=== PATIENT | male | born 1960 | race Caucasian/White ===

== ENCOUNTER 2021-02-13 23:47 | Inpatient (IN) | payer BC, SELFPAY ==
--- NOTE | 2021-02-13 23:49 | ED.RN ---
NO OLD EKGS IN MUSE
[2021-02-13 23:50] VITALS: BP 120/88; PULSE 79; RESP 16; TEMP 36.8; O2SAT 98; BMI 35.1
[2021-02-13 23:53] VITALS: BP 120/88; PULSE 76; RESP 16; TEMP 36.8; O2SAT 98
[2021-02-14] VITALS (14 sets, daily range): BP systolic 107–186; BP diastolic 87–106; PULSE 69–100; RESP 14–20; TEMP 36.8–37.7; O2SAT 95–99; BMI 31.8
--- NOTE | 2021-02-14 00:21 | EKG12_ITS ---
Test Reason : CP Blood Pressure : / mmHG Vent. Rate : 080 BPM Atrial Rate : 080 BPM P-R Int : 132 ms QRS Dur : 074 ms QT Int : 368 ms P-R-T Axes : 052 017 041 degrees QTc Int : 424 ms Normal sinus rhythm Normal ECG Confirmed by VIKRAM TYSON, BARRY ([id number]), offline editor ELIAS MATTA ([id number]) on 02/15/2021 10:03:25 AM Referred By: BB Confirmed By:BARRY SUE MD
--- NOTE | 2021-02-14 00:21 | CT_ITS ---
STUDY: CT BRAIN WITHOUT CONTRAST REASON FOR EXAM: Male, 60 years old. Dizziness RADIATION DOSAGE (If Supplied By Facility): CTDIvol = ( 44.99 ) mGy, DLP = ( 779.24 ) mGycm TECHNIQUE: Transaxial CT imaging of the brain was performed without administration of intravenous contrast material. Individualized dose optimization techniques were used for this CT. COMPARISON: No relevant priors. FINDINGS: Normal soft tissue structures. Normal calvarium. There is mild cerebral atrophy with widening of the extra-axial spaces and ventricular dilatation. Normal white matter tracts of the cerebral hemispheres. Normal basal ganglia and thalami. Normal brainstem. Normal cerebellum. There is no intracranial hemorrhage. There are no findings of an acute ischemic infarction. There is mucoid thickening of the maxillary sinuses and ethmoid sinuses frontal sinuses. CT/Brain/Head without Contrast IMPRESSION: Mild atrophy no evidence of acute hemorrhage infarct or edema. Pansinusitis. Electronically Signed: Tammy Arriaga MD at 0:53 EDT Tel , Service support ,
--- NOTE | 2021-02-14 00:21 | RAD_ITS ---
STUDY: X-RAY CHEST REASON FOR EXAM: Male, 60 years old. Sob TECHNIQUE: Single AP portable view of the chest. COMPARISON: None. FINDINGS: The lungs are clear and expanded. There is no demonstrated pleural abnormality. Normal size heart. Normal mediastinum and mamta. Normal visualized pulmonary arteries. Normal visualized aortic arch and descending thoracic aorta. There are diffuse degenerative changes of the visualized thoracic spine. Normal visualized ribs, clavicles, and shoulders. There is no demonstrated abnormality of the visualized soft tissue structures of the upper abdomen. RAD/Chest 1 View (Portable) IMPRESSION: Degenerative changes, as described above. No demonstrated acute cardiopulmonary process. Electronically Signed: Tammy Arriaga MD at 1:05 EDT Tel , Service support ,
--- NOTE | 2021-02-14 00:25 | EDS_ITS ---
HPI History of Present Illness Chief Complaint: Chest Pain Detail of Chief Complaint: CP, dizziness, sob, n/v Informant: patient and EMS Onset/Context/Timing Onset: Hours (2) Quality: lightheadedness. tightness. nonbilious nonbloody emesis. see below Location: see below. 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 It faded and then returned, followed by vomiting, and he felt dizzy after that. He states it felt like lightheadedness, not a sensation of movement or spinning or falling. He had several episodes of vomiting. He states standing definitely made his lightheadedness worse, he did feel close to passing out at one point but did not lose consciousness. Sitting down made him feel better, turning his body to change positions/directions or turning his head did not necessarily make his dizziness symptom worse. While he was dry heaving, and shortly thereafter, he was feeling very anxious and hyperventilating, feeling dyspnea, and started feeling tightness everywhere. He states he feels it now, but less so than it was earlier, but he admits he is uncomfortable because of feeling tight. He feels tightness in his back, his right lower chest, his left flank, and somewhat in his neck. He then goes on to say these areas of tightness he feels are musculoskeletal, he gets this frequently, it comes on every night and dissipates with taking his clonazepam, which he takes for his bipolar disorder in order to sleep every night. He states if he does not take it he will not be able to sleep for days. He states he felt that his vomiting and dry heaving exacerbated the tightness feeling in this scenario. He states the dyspnea, nausea, and dizziness are all resolved right now and he is feeling better but still anxious. Patient presents around midnight, he works second shift and is at the end of his shift. He states the shift was uneventful until this happened. He states he was drinking plenty of water, and he was not overheated as far as the area of the factor he was in. Prior similar symptoms: No Recent Illness/Hospitalization: No [facility] Medical History Bipolar disorder Home Medications clonazepam 1 mg PO QHS 01/01/14 [History Last Taken Unknown] divalproex 250 mg PO QHS 01/01/14 [History Last Taken Unknown] duloxetine 30 mg PO DAILY 01/01/14 [History Last Taken Unknown] lamotrigine 100 mg PO BID 01/01/14 [History Last Taken Unknown] Allergy/AdvReac Type Severity Reaction Status Date / Time No Known Allergies Allergy Verified 02/14/21 00:44 Social History (Updated 02/14/21 @ 00:[address] Ricardo uY MD) Smoking Status: Never smoker details: none today substance use type: does not use ROS ROS ED Constitutional Constitutional ED: Denies chills or fever(s) Eyes Eyes: Denies change in vision or diplopia ENT ENT ED: Denies rhinorrhea or sore throat Cardiovascular Cardiovascular: Denies chest pain or palpitations Respiratory/Chest Respiratory/Chest: Denies cough or dyspnea Gastrointestinal Gastrointestinal: Denies abdominal pain, diarrhea, nausea or vomiting Genitourinary Genitourinary ED: Denies dysuria or hematuria Musculoskeletal Musculoskeletal: Denies back pain or neck pain Integumentary Denies abscess or rash Neurologic Neurologic: Denies headache(s), paresthesias or weakness Psychiatric Psychiatric: Denies anxiety or suicidal thoughts EXAM Physical Exam Const Vital Signs: 02/13/21 23:50 02/13/21 23:53 02/13/21 23:59 Temperature 98.2 F 98.2 F Temperature Source Temporal Temporal Pulse Rate 79 76 Pulse Rate [Lying] Pulse Rate [Sitting] Pulse Rate [Standing] Respiratory Rate 16 16 Respiratory Effort Normal Non-Labored Blood Pressure 120/88 H 120/88 H Blood Pressure [Lying] Blood Pressure [Sitting] Blood Pressure [Standing] Blood Pressure Mean 98 98 Blood Pressure Mean [Lying] Blood Pressure Mean [Sitting] Blood Pressure Mean [Standing] Pulse Ox 98 98 Oxygen Delivery Method Room Air Room Air 02/14/21 00:31 02/14/21 00:48 02/14/21 01:16 Temperature Temperature Source Pulse Rate 100 91 Pulse Rate [Lying] 92 Pulse Rate [Sitting] 100 Pulse Rate [Standing] 100 Respiratory Rate 18 15 Respiratory Effort Blood Pressure 126/96 H 150/87 H Blood Pressure [Lying] 121/98 H Blood Pressure [Sitting] 117/88 H Blood Pressure [Standing] 107/95 H Blood Pressure Mean 106 108 Blood Pressure Mean [Lying] 105 Blood Pressure Mean [Sitting] 97 Blood Pressure Mean [Standing] 99 Pulse Ox 98 97 Oxygen Delivery Method Room Air Room Air 02/14/21 03:00 02/14/21 04:00 02/14/21 04:24 Temperature Temperature Source Pulse Rate 84 78 69 Pulse Rate [Lying] Pulse Rate [Sitting] Pulse Rate [Standing] Respiratory Rate 20 H 17 16 Respiratory Effort Blood Pressure 177/102 H Blood Pressure [Lying] Blood Pressure [Sitting] Blood Pressure [Standing] Blood Pressure Mean 127 Blood Pressure Mean [Lying] Blood Pressure Mean [Sitting] Blood Pressure Mean [Standing] Pulse Ox 99 95 Oxygen Delivery Method Room Air Room Air Positive well nourished and well developed General Appearance ED: well developed and NAD HEENT Reports TM's clear and moist mucous membranes Negative for trauma or tenderness Tympanic Membrane ED: Yes TM's clear Eyes PERRL and EOMs intact bilaterally EOM: Negative for nystagmus Neck full ROM and supple Resp normal respiratory effort and clear to auscultation bilaterally Cardio regular rate, regular rhythm and no murmurs Rate: Negative for bradycardia or tachycardic GI non-tender and non-distended Auscultation: normoactive bowel sounds Palpation: soft Back/Spine no CVA tenderness General Back: other FROM Extremity normal to inspection General Extremety ED: Negative for edema, pulses abnormal or tenderness General Extremity: Negative for edema or pulses abnormal Neuro oriented x3, CN's II-XII intact bilaterally and no sensory deficits noted Sensorium / Orientation: awake and alert Motor Exam: strength 5/5 throughout Coordination: [id number] test normal and [id number] test normal Psych mental status grossly normal and thought process normal Skin no rashes or lesions noted and no wounds MDM MDM MDM Narrative Medical decision making narrative: Lipase is elevated, and as below CT shows pansinusitis. I suspect the lipase is more likely related to his acute symptoms. He does not have the typical abdominal discomfort and tenderness that someone with acute pancreatitis typically has. He last drank alcohol 1-2 mos ago. Never had any abdominal surgeries. On reexamination, his abdomen is nontender and he is not having any significant pain. CT of the abdomen and pelvis with IV contrast was obtained next. Results are shown below. Discussed with Dr. Crawford with surgery who reviewed the imaging. With his elevated lipase, concern for possible annular pancreas was risen, however gastroenteritis is also in the differential diagnosis given the unusual pattern of bowel dilatation. In further discussion with the patient, he states it coincidentally his girlfriend's family had gastroenteritis this past week, she was around them, and then she got the symptoms. The patient always has loose stools because he drinks a lot of grape juice he states and so he cannot tell if he has had any abnormal diarrhea, he had 1 loose stool at work. Surgery recommends placing an NG tube given the severe distention of the stomach with fluid indicating that certainly something there is going on, and admitting him to perform further work-up. There is no data available at this time that would support an emergent transfer to a tertiary care center. Discussed w/ Hospitalist. NGT placed by nursing, stomach contents was aspirated, and in combination w/ the amount that the patient vomited in the process, about 1000mL of stomach contents was expelled. Given this, no XR is needed to verify placement. Also, with regards to the patient's elevated creatinine, he has no prior labs here, he is a [facility] primary care patient, he was not able to access his chart electronically in order to look for prior levels but he has never been told he had an abnormality. Lab Data Attestation: I reviewed the patient's lab results. Labs: Laboratory Results - last 24 hr 02/14/21 02/14/21 02/14/21 00:00 00:00 00:00 WBC 11.8 H RBC 4.49 L Hgb 14.4 Hct 42.3 MCV 94.2 H MCH 32.1 H MCHC 34.0 RDW Std Deviation 41.0 RDW Coeff of Kelley 11.9 Plt Count 359 MPV 9.4 Immature Gran % (Auto) 0.500 Neut % (Auto) 90.7 H Lymph % (Auto) 3.6 L [place] % (Auto) 4.0 Eos % (Auto) 0.9 Baso % (Auto) 0.3 Absolute Neuts (auto) 10.7 H Absolute Lymphs (auto) 0.43 L Nucleated RBC % 0 Differential Comment SCANNED Sodium 139 Potassium 5.1 Chloride 106 Carbon Dioxide 24.0 Anion Gap 9 BUN 25 H Creatinine 1.81 H Estim Creat Clear Calc 41.08 Est GFR (MDRD) Af Amer 50 L Est GFR (MDRD) Non-Af 41 L BUN/Creatinine Ratio 13.8 Glucose 150 H Calcium 9.7 Total Bilirubin 0.70 Direct Bilirubin 0.20 AST 28 ALT 46 Alkaline Phosphatase 101 Troponin I < 0.015 Total Protein 7.9 Albumin 4.3 Globulin 3.6 Lipase 1568 H Urine Color Urine Clarity Urine pH Ur Specific [place] Urine Protein Urine Glucose (UA) Urine Ketones Urine Occult Blood Urine Nitrite Urine Bilirubin Urine Urobilinogen Ur Leukocyte Esterase Urine RBC Urine WBC Ur Squamous Epith Cells Urine Bacteria Urine Mucus 02/14/21 01:00 WBC RBC Hgb Hct MCV MCH MCHC RDW Std Deviation RDW Coeff of Kelley Plt Count MPV Immature Gran % (Auto) Neut % (Auto) Lymph % (Auto) [place] % (Auto) Eos % (Auto) Baso % (Auto) Absolute Neuts (auto) Absolute Lymphs (auto) Nucleated RBC % Differential Comment Sodium Potassium Chloride Carbon Dioxide Anion Gap BUN Creatinine Estim Creat Clear Calc Est GFR (MDRD) Af Amer Est GFR (MDRD) Non-Af BUN/Creatinine Ratio Glucose Calcium Total Bilirubin Direct Bilirubin AST ALT Alkaline Phosphatase Troponin I Total Protein Albumin Globulin Lipase Urine Color Yellow Urine Clarity Clear Urine pH 6.0 Ur Specific [place] 1.020 Urine Protein 30 H Urine Glucose (UA) Normal Urine Ketones 5 H Urine Occult Blood Negative Urine Nitrite Negative Urine Bilirubin 1 H Urine Urobilinogen Normal Ur Leukocyte Esterase 25 H Urine RBC 0 SEEN Urine WBC 0-5 SEEN Ur Squamous Epith Cells 0 SEEN Urine Bacteria 0 SEEN Urine Mucus 0 SEEN Radiography Diagnostic Testing: Radiology Impression Brain CT 02/14/21 00:21 IMPRESSION: Mild atrophy no evidence of acute hemorrhage infarct or edema. Pansinusitis. Electronically Signed: Tammy Arriaga MD at 0:53 EDT Tel , Service support , Chest X-Ray 02/14/21 00:21 IMPRESSION: Degenerative changes, as described above. No demonstrated acute cardiopulmonary process. Electronically Signed: Tammy Arriaga MD at 1:05 EDT Tel , Service support , Abdomen/Pelvis CT 02/14/21 02:26 IMPRESSION: Distended stomach with a decompressed duodenum distended jejunum possible etiology enteritis or focal narrowing of the lumen, and/or potential for possible gastric outlet obstruction with enteritis versus moderate grade partial small bowel obstruction. Recommend aspiration precautions the stomach is very distended with an air-fluid level. Hepatic steatosis. No appendicitis. No hydronephrosis. Electronically Signed: Tammy Arriaga MD at 3:38 EDT Tel , Service support , EKG Initial EKG: Attestation: I personally reviewed and interpreted this EKG as follows: Interpretation: Sinus Rhythm and No Acute Injury Pattern Comments: normal EKG Prior EKG tracings: available for review (EMS, JPTA today) Prior: Unchanged (also normal) Discharge Plan Dx/Rx/DC Orders Clinical Impression: Partial bowel obstruction, Elevated lipase, KEITH (acute kidney injury) Disposition Disposition: Acute Care Hospital [facility]
[2021-02-14 00:32] LABS: Absolute Lymphocyte Count 0.43 X10^3/uL (0.83-4.51); Absolute Neutrophil Count 10.7 X10^3/uL (2.0-7.7); Basophil# 0.04 X10^3/uL; Basophil% 0.3 % (0-1); Eosinophil# 0.11 X10^3/uL; Eosinophils% 0.9 % (0-5); Hematocrit 42.3 % (40-54); Hemoglobin 14.4 g/dL (13.0-16.5); Lymphocyte # 0.43 X10^3/ul (0.83-4.51); Lymphocyte % 3.6 % (19-41); Mean Corpuscular Hgb 32.1 pg (27.0-32.0); Mean Corpuscular Volume 94.2 fL (80-94); Mean Platelet Vol. 9.4 fl (6.2-12.0); Monocyte# 0.47 X10^3/uL; NRBC Flagged by Analyzer 0 % (0-5); Neutrophil % 90.7 % (47-70); POSITIVE DIFFERENTIAL YES; Platelet Count 359 K/mm3 (150-450); RBC Distribution Width CV 11.9 % (11.6-14.6); Red Blood Count 4.49 M/mm3 (4.6-6.2); White Blood Count 11.8 K/mm3 (4.4-11.0)
[2021-02-14 00:47] LABS: Anion Gap 9 (5-15); BUN 25 mg/dL (7-18); BUN/Creat Ratio 13.8 RATIO (10-20); Calcium,Total 9.7 mg/dL (8.5-10.1); Chloride 106 mmol/L (98-107); Creatinine, Serum 1.81 mg/dL (0.70-1.30); EST Glomerular Filtration Rate 41 mL/min (>60); Est Glom Filt Rate - Afr Amer 50 mL/min (>60); Estimated Creatinine Clearance 41.08 ml/min; Glucose 150 mg/dL (74-106); Lipase 1568 U/L (73-393); Potassium 5.1 mmol/L (3.5-5.1); Sodium Level 139 mmol/L (136-145)
[2021-02-14 00:49] LABS: Differential Indicated SCAN CRITERIA MET
[2021-02-14] MEDS: clonazePAM 1 MG Tablet PO ×2 (00:52→21:39)
[2021-02-14 01:04] LABS: Bacteria 0 SEEN /hpf (None Seen); Color, Urine Yellow (Yellow); Glucose, Dipstick Normal (Normal); Ketone-Dipstick 5 mg/dl (Negative); Leukocyte Esterase-Dipstick 25 /ul (Negative); Mucous, Urine 0 SEEN /hpf (<or=2+); Nitrite-Dipstick Negative (Negative); Occult Blood-Urine Negative /ul (Negative); Protein-Dipstick 30 mg/dl (Negative); Red Blood Cells-Urine 0 SEEN /hpf (0-5); Squamous Epithelial Cells - UA 0 SEEN /hpf (0-5); Urine Clarity Clear (Clear); Urine Urobilinogen Normal (Normal)
[2021-02-14 01:08] LABS: Urine Bilirubin Dipstick 1 mg/dL (Negative)
[2021-02-14 01:10] LABS: White Blood Cells 0-5 SEEN /hpf (0-5)
[2021-02-14 01:12] LABS: Differential Comment SCANNED
--- NOTE | 2021-02-14 02:26 | CT_ITS ---
STUDY: CT ABDOMEN AND PELVIS WITH CONTRAST REASON FOR EXAM: Male, 60 years old. Vomiting, elevated lipase RADIATION DOSAGE (If Supplied By Facility): CTDIvol = ( 25.70 ) mGy, DLP = ( 1150.90 ) mGycm TECHNIQUE: Transaxial images were obtained from the dome of the diaphragm to the symphysis pubis without oral contrast. IV 100mL [id number]-[id number] was administered. Sagittal and coronal images were reconstructed. Individualized dose optimization techniques were used for this CT. COMPARISON: None. FINDINGS: The visualized lung bases are unremarkable. The visualized portions of the heart are within normal limits. There is decreased attenuation of the liver consistent with steatosis. Normal gallbladder and extrahepatic biliary system. Normal spleen. Normal pancreas. Normal bilateral adrenal glands. Normal right kidney. Normal left kidney. The stomach is very distended with an air-fluid level. Appears to taper at the level of the first part of the duodenum is minimally distended. There are distended loops of small bowel in the left upper quadrant up to 3 cm. There is focal decompress or possible narrowed appearance of the mild bowel lumen distal to this multi - loop distention on image #[id number]. The distal small bowel is decompressed. There is a equal or lesser caliber of the colon when compared to the distended left upper quadrant small bowel. The appendix is visualized and appears normal. Normal abdominal aorta. Normal inferior vena cava. Normal retroperitoneum. Normal urinary bladder. There are prostatic calcifications. Normal abdominal wall. There is multilevel spondylosis. There is multilevel disc space narrowing. There is a broad disc bulge L3-L4. At L4-L5 there is a broad disc osteophyte with moderate to severe neural foraminal narrowing moderate to severe central stenosis. At L5-S1 there is slight retrolisthesis. There is vacuum phenomenon. There is a broad disc bulge is no significant neural foramina narrowing or central stenosis. CT/Abdomen/Pelvis W IV Cont ONLY IMPRESSION: Distended stomach with a decompressed duodenum distended jejunum possible etiology enteritis or focal narrowing of the lumen, and/or potential for possible gastric outlet obstruction with enteritis versus moderate grade partial small bowel obstruction. Recommend aspiration precautions the stomach is very distended with an air-fluid level. Hepatic steatosis. No appendicitis. No hydronephrosis. Electronically Signed: Tammy Arriaga MD at 3:38 EDT Tel , Service support ,
[2021-02-14] MEDS: Lidocaine 4% 5 ML Ampul 2 ML INHALATION (04:24)
[2021-02-14 04:27] LABS: AST(SGOT) 28 U/L (15-37); Alanine Aminotransfer ALT/SGPT 46 U/L (16-61); Albumin, Serum 4.3 g/dL (3.2-5.0); Alkaline Phosphatase 101 U/L (45-117); Globulin 3.6 g/dL (2.2-4.2); Protein, Total 7.9 g/dL (6.4-8.2)
[2021-02-14] MEDS: Oxymetazoline 0.05% 1 SPRAY SPRAY.BTL 2 SPRAY NASAL (04:40)
--- NOTE | 2021-02-14 04:44 | RAD_ITS ---
STUDY: X-RAY - ABDOMEN/PELVIS REASON FOR EXAM: Male, 60 years old. Ng placement -- KUB with both diaphragms for NG/OG Verification TECHNIQUE: Single AP view of the abdomen / pelvis. COMPARISON: February 13, 2021 chest x-ray FINDINGS: There is minimal lower lobe atelectasis. There is an NG tube tip is in the stomach. There is a nonspecific partially visualized with distended appearing bowel loops in the left and midline abdomen. The liver spleen and kidneys are obscured. IMPRESSION : NG tube tip in satisfactory position. Electronically Signed: Tammy Arriaga MD at 6:23 EDT Tel , Service support , RAD/Abdomen Single View (Portable)
--- NOTE | 2021-02-14 04:59 | PCM.HP.STD ---
HPI - General General Date of Admission: 02/14/21 HPI Narrative MOUNA DENTON, is a 60 M with a significant history of bipolar disorder who presents to the emergency department with multiple episodes of nausea and vomiting that started few hours before presentation. Patient was at work doing some light duty nonexertional with. Reportedly he was not overheated and he was well hydrated. Associated if his symptoms is lightheadedness and chest pain radiating to his right shoulder blade and down below . He has had to episodes of loose bowel movements 1 at the workplace and 1 at the emergency department. He reported at his girlfriend; and girlfriend's family has nausea vomiting and diarrhea. [facility] Medical History (Updated 02/14/21 @ 05:[address] Isaias Tobias MD) Bipolar disorder Home Medications clonazepam 1 mg PO QHS 01/01/14 [History Last Taken Unknown] divalproex 250 mg PO QHS 01/01/14 [History Last Taken Unknown] duloxetine 30 mg PO DAILY 01/01/14 [History Last Taken Unknown] lamotrigine 100 mg PO BID 01/01/14 [History Last Taken Unknown] Allergy/AdvReac Type Severity Reaction Status Date / Time No Known Allergies Allergy Verified 02/14/21 00:44 Family History (Updated 02/14/21 @ 05:[address] Isaias Tobias MD) Other Aneurysm Cancer Heart disease Kidney disease Liver problem Surgical History (Updated 02/14/21 @ 05:[address] Isaias Tobias MD) H/O vasectomy S/P LASIK surgery of both eyes Social History (Updated 02/14/21 @ 05:[address] Isaias Tobias MD) Smoking Status: Never smoker alcohol intake: current alcohol intake frequency: holidays/special occasions only details: none today substance use type: does not use ROS Constitutional Constitutional: Denies chills or fever(s) Eyes Eyes: Denies blurry vision or change in vision ENT HEENT: Denies dysphagia, epistaxis or headache(s) Cardiovascular Cardiovascular: Reports chest pain and lightheadedness Respiratory/Chest Respiratory/Chest: Reports shortness of breath at rest; Denies cough or dyspnea Gastrointestinal Gastrointestinal: Reports loose stools, nausea and vomiting Genitourinary Genitourinary: Denies burning urination or difficulty urinating Musculoskeletal Musculoskeletal: Reports back pain Neurologic Neurologic: Denies abnormal speech or confusion Psychiatric Psychiatric: Reports anxiety and other Endocrine Endocrinology: Denies change in body appearance or cold intolerance Hematologic/Lymphatic Hematologic/Lymphatic: Denies easy bleeding or easy bruising Vital Signs Vital Signs Vital Signs: 02/13/21 23:50 02/13/21 23:53 02/13/21 23:59 Temperature 98.2 F 98.2 F Temperature Source Temporal Temporal Pulse Rate 79 76 Pulse Rate [Lying] Pulse Rate [Sitting] Pulse Rate [Standing] Respiratory Rate 16 16 Respiratory Effort Normal Non-Labored Blood Pressure 120/88 H 120/88 H Blood Pressure [Lying] Blood Pressure [Sitting] Blood Pressure [Standing] Blood Pressure Mean 98 98 Blood Pressure Mean [Lying] Blood Pressure Mean [Sitting] Blood Pressure Mean [Standing] Pulse Ox 98 98 Oxygen Delivery Method Room Air Room Air 02/14/21 00:31 02/14/21 00:48 02/14/21 01:16 Temperature Temperature Source Pulse Rate 100 91 Pulse Rate [Lying] 92 Pulse Rate [Sitting] 100 Pulse Rate [Standing] 100 Respiratory Rate 18 15 Respiratory Effort Blood Pressure 126/96 H 150/87 H Blood Pressure [Lying] 121/98 H Blood Pressure [Sitting] 117/88 H Blood Pressure [Standing] 107/95 H Blood Pressure Mean 106 108 Blood Pressure Mean [Lying] 105 Blood Pressure Mean [Sitting] 97 Blood Pressure Mean [Standing] 99 Pulse Ox 98 97 Oxygen Delivery Method Room Air Room Air 02/14/21 03:00 02/14/21 04:00 02/14/21 04:24 Temperature Temperature Source Pulse Rate 84 78 69 Pulse Rate [Lying] Pulse Rate [Sitting] Pulse Rate [Standing] Respiratory Rate 20 H 17 16 Respiratory Effort Blood Pressure 177/102 H Blood Pressure [Lying] Blood Pressure [Sitting] Blood Pressure [Standing] Blood Pressure Mean 127 Blood Pressure Mean [Lying] Blood Pressure Mean [Sitting] Blood Pressure Mean [Standing] Pulse Ox 99 95 Oxygen Delivery Method Room Air Room Air Physical Exam Const alert and oriented x3 General Appearance: cooperative HEENT normocephalic and head/scalp atraumatic Eyes PERRL and EOMs intact bilaterally Neck no lymphadenopathy and no JVD Resp normal respiratory effort and no retractions Cardio regular rate, regular rhythm, S1 normal heart sound and S2 normal heart sound Peripheral Pulses: pulses 2+ throughout GI normal to inspection, nondistended, normoactive bowel sounds Extremity normal to inspection and full ROM Peripheral Pulses: Yes pulses 2+ throughout Skin no rashes or lesions noted, no wounds and skin turgor normal Neuro oriented x3 and CN's II-XII intact bilaterally Sensorium / Orientation: awake and alert Psych Mood & Affect: anxious Lab / Micro Data Result Diagrams: 02/14/21 00:00 02/14/21 00:00 Labs: Laboratory Results - last 24 hr 02/14/21 02/14/21 02/14/21 00:00 00:00 00:00 WBC 11.8 H RBC 4.49 L Hgb 14.4 Hct 42.3 MCV 94.2 H MCH 32.1 H MCHC 34.0 RDW Std Deviation 41.0 RDW Coeff of Kelley 11.9 Plt Count 359 MPV 9.4 Immature Gran % (Auto) 0.500 Neut % (Auto) 90.7 H Lymph % (Auto) 3.6 L Butts % (Auto) 4.0 Eos % (Auto) 0.9 Baso % (Auto) 0.3 Absolute Neuts (auto) 10.7 H Absolute Lymphs (auto) 0.43 L Nucleated RBC % 0 Differential Comment SCANNED Sodium 139 Potassium 5.1 Chloride 106 Carbon Dioxide 24.0 Anion Gap 9 BUN 25 H Creatinine 1.81 H Estim Creat Clear Calc 41.08 Est GFR (MDRD) Af Amer 50 L Est GFR (MDRD) Non-Af 41 L BUN/Creatinine Ratio 13.8 Glucose 150 H Calcium 9.7 Total Bilirubin 0.70 Direct Bilirubin 0.20 AST 28 ALT 46 Alkaline Phosphatase 101 Troponin I < 0.015 Total Protein 7.9 Albumin 4.3 Globulin 3.6 Lipase 1568 H Urine Color Urine Clarity Urine pH Ur Specific [place] Urine Protein Urine Glucose (UA) Urine Ketones Urine Occult Blood Urine Nitrite Urine Bilirubin Urine Urobilinogen Ur Leukocyte Esterase Urine RBC Urine WBC Ur Squamous Epith Cells Urine Bacteria Urine Mucus 02/14/21 01:00 WBC RBC Hgb Hct MCV MCH MCHC RDW Std Deviation RDW Coeff of Kelley Plt Count MPV Immature Gran % (Auto) Neut % (Auto) Lymph % (Auto) Butts % (Auto) Eos % (Auto) Baso % (Auto) Absolute Neuts (auto) Absolute Lymphs (auto) Nucleated RBC % Differential Comment Sodium Potassium Chloride Carbon Dioxide Anion Gap BUN Creatinine Estim Creat Clear Calc Est GFR (MDRD) Af Amer Est GFR (MDRD) Non-Af BUN/Creatinine Ratio Glucose Calcium Total Bilirubin Direct Bilirubin AST ALT Alkaline Phosphatase Troponin I Total Protein Albumin Globulin Lipase Urine Color Yellow Urine Clarity Clear Urine pH 6.0 Ur Specific [place] 1.020 Urine Protein 30 H Urine Glucose (UA) Normal Urine Ketones 5 H Urine Occult Blood Negative Urine Nitrite Negative Urine Bilirubin 1 H Urine Urobilinogen Normal Ur Leukocyte Esterase 25 H Urine RBC 0 SEEN Urine WBC 0-5 SEEN Ur Squamous Epith Cells 0 SEEN Urine Bacteria 0 SEEN Urine Mucus 0 SEEN Radiology Impression Brain CT 02/14/21 00:21 IMPRESSION: Mild atrophy no evidence of acute hemorrhage infarct or edema. Pansinusitis. Electronically Signed: Tammy Arriaga MD at 0:53 EDT Tel , Service support , Chest X-Ray 02/14/21 00:21 IMPRESSION: Degenerative changes, as described above. No demonstrated acute cardiopulmonary process. Electronically Signed: Tammy Arriaga MD at 1:05 EDT Tel , Service support , Abdomen/Pelvis CT 02/14/21 02:26 IMPRESSION: Distended stomach with a decompressed duodenum distended jejunum possible etiology enteritis or focal narrowing of the lumen, and/or potential for possible gastric outlet obstruction with enteritis versus moderate grade partial small bowel obstruction. Recommend aspiration precautions the stomach is very distended with an air-fluid level. Hepatic steatosis. No appendicitis. No hydronephrosis. Electronically Signed: Tammy Arriaga MD at 3:38 EDT Tel , Service support , Assessment & Plan Assessment/Plan (1) Gastroenteritis: Status: Acute Code(s): K52.9 - Noninfective gastroenteritis and colitis, unspecified (2) Partial bowel obstruction: Status: Acute Code(s): K56.600 - Partial intestinal obstruction, unspecified as to cause Qualifiers: Intestinal obstruction type: unspecified Qualified Code(s): K56.600 - Partial intestinal obstruction, unspecified as to cause (3) Elevated lipase: Status: Acute Code(s): R74.8 - Abnormal levels of other serum enzymes (4) KEITH (acute kidney injury): Status: Acute Code(s): N17.9 - Acute kidney failure, unspecified (5) Bipolar disorder: Status: Chronic Code(s): F31.9 - Bipolar disorder, unspecified Qualifiers: Active/Remission status: remission status unspecified Qualified Code(s): F31.9 - Bipolar disorder, unspecified Plan: Emergency department doctor discussed the case with general surgeon who will follow. Inpatient general surgeon consult. NG tube placed in the emergency department. Enteropathogenic panel; O&P and C. difficile test Zofran IV as needed ordered. Lactated Ringer's infusion ordered Trend CBC and CMP. Community records were reviewed. No other labs found. Avoid nephrotoxic's. Currently n.p.o. so home p.o. psych medications held. In exchange of clonazepam will give Ativan IV x1 and nightly. Inpatient E&M: [id number] Init Hosp L3
--- NOTE | 2021-02-14 05:55 | US_ITS ---
STUDY: ABDOMINAL ULTRASOUND - RIGHT UPPER QUADRANT REASON FOR VISIT: Male, 60 years old pancreatitis TECHNIQUE: Ultrasound evaluation of the right upper quadrant was performed with real-time and static martin-scale imaging. TECHNICAL QUALITY: Adequate. COMPARISON: None. FINDINGS: Liver: The liver measures 15.5 cm. There is increased echogenicity consistent with fatty infiltration. The bile ducts are within normal limits. There is hepatic color flow. The direction of portal flow is hepatopetal. There is no demonstrated mass lesion. Gallbladder: Normal distended gallbladder. The gallbladder wall measures 2 mm. There is a negative sonographic Treviño''s sign. There is no pericholecystic fluid. There is biliary sludge dependent within the gallbladder. Common Bile Duct (C.B.D.): The common bile duct measures 3 mm. Pancreas: Normal size of the head, body and tail of the pancreas. There is normal echogenicity of the pancreas. There is no demonstrated pancreatic mass or cyst. Right Kidney: Normal size of the right kidney. The right kidney measures 9.9 cm. Normal renal cortex. The right cortex measures 1.4 cm. There is no demonstrated renal mass or cyst. There is no right hydronephrosis. US/Gallbladder IMPRESSION: 1. Gallbladder sludge. 2. Fatty infiltration liver. Electronically Signed: Ketan Bustos MD at 8:46 EDT Tel , Service support ,
[2021-02-14] MEDS: Lactated Ringers 1,000 ML 150 ML IV ×3 (06:11→21:13)
[2021-02-14] MEDS: 0.9% Saline Lock 10 ML Syringe IV ×2 (06:11→18:23)
[2021-02-14] MEDS: LORazepam 2 MG/ML Syringe 1 MG IV (06:11)
[2021-02-14 06:31] LABS: Absolute Lymphocyte Count 0.29 X10^3/uL (0.83-4.51); Absolute Neutrophil Count 9.9 X10^3/uL (2.0-7.7); Basophil# 0.03 X10^3/uL; Basophil% 0.3 % (0-1); Eosinophil# 0.01 X10^3/uL; Eosinophils% 0.1 % (0-5); Hematocrit 40.2 % (40-54); Hemoglobin 13.3 g/dL (13.0-16.5); Lymphocyte # 0.29 X10^3/ul (0.83-4.51); Lymphocyte % 2.7 % (19-41); Mean Corp Hgb Conc 33.1 g/dL (32-36); Mean Corpuscular Hgb 31.1 pg (27.0-32.0); Mean Corpuscular Volume 93.9 fL (80-94); Mean Platelet Vol. 8.9 fl (6.2-12.0); Monocyte# 0.32 X10^3/uL; NRBC Flagged by Analyzer 0 % (0-5); Neutrophil # 9.91 X10^3/uL (2.7-7.7); Neutrophil % 93.4 % (47-70); POSITIVE DIFFERENTIAL YES; Platelet Count 298 K/mm3 (150-450); RBC Distribution Width CV 12.2 % (11.6-14.6); RBC Distribution Width SD 42.1 fl (35.1-43.9); Red Blood Count 4.28 M/mm3 (4.6-6.2); White Blood Count 10.6 K/mm3 (4.4-11.0)
[2021-02-14 06:32] LABS: Differential Indicated SCAN CRITERIA MET
[2021-02-14 06:50] LABS: Differential Comment SCANNED
[2021-02-14 07:01] LABS: ALB/GLOB Ratio 1.3 RATIO (0.9-2.4); AST(SGOT) 20 U/L (15-37); Alanine Aminotransfer ALT/SGPT 40 U/L (16-61); Albumin, Serum 3.7 g/dL (3.2-5.0); Alkaline Phosphatase 90 U/L (45-117); Anion Gap 9 (5-15); BUN 24 mg/dL (7-18); BUN/Creat Ratio 16.3 RATIO (10-20); Calcium,Total 8.7 mg/dL (8.5-10.1); Chloride 105 mmol/L (98-107); Creatinine, Serum 1.47 mg/dL (0.70-1.30); EST Glomerular Filtration Rate 52 mL/min (>60); Est Glom Filt Rate - Afr Amer 63 mL/min (>60); Estimated Creatinine Clearance 50.59 ml/min; Globulin 2.9 g/dL (2.2-4.2); Glucose 135 mg/dL (74-106); Potassium 4.4 mmol/L (3.5-5.1); Protein, Total 6.6 g/dL (6.4-8.2); Sodium Level 139 mmol/L (136-145)
[2021-02-14 07:15] LABS: Valproic Acid (Depakene) Level < 3 ug/mL (50-100)
--- NOTE | 2021-02-14 07:27 | EX.PCM.CON.S ---
Assessment & Plan Assessment/Plan (1) Partial bowel obstruction: Status: Acute Code(s): K56.600 - Partial intestinal obstruction, unspecified as to cause Qualifiers: Intestinal obstruction type: unspecified Qualified Code(s): K56.600 - Partial intestinal obstruction, unspecified as to cause (2) Elevated lipase: Status: Acute Code(s): R74.8 - Abnormal levels of other serum enzymes (3) Gastroenteritis: Status: Acute Code(s): K52.9 - Noninfective gastroenteritis and colitis, unspecified Plan: The patient was admitted with nausea and vomiting and had an NG tube placed with over a liter of output. The patient also reports that he is having diarrhea and abdominal pain rating to the back. The patient has sick contacts that are having the same symptoms. I have ordered a Covid test to ensure that this is not COVID-19. The patient is also ordered to have an ultrasound of the right upper quadrant to see if he has any gallstones. If the patient does have small gallstones it is possible that he has gallstone pancreatitis with ileus. The patient did have a very distended stomach on CT scan but he did have some mild dilation of the jejunum. Less likely the diagnosis would be a differential of annular pancreas causing gastric outlet obstruction. Fan Crawford MD Pager: [facility] [address] [place] [address], [address] [place] [address] Office: HPI Consult Data Date of Consult: 02/14/21 HPI Narrative HPI Narrative: MOUNA DENTON, is a 60 M who presents with nausea and vomiting. Patient also reports that he had diarrhea last night and again in the emergency room and again this morning up in his room. He does say he has had sick contacts. He says his girlfriend and her entire family were sick and she saw her recently. They had similar symptoms with nausea and vomiting and diarrhea. Patient says that he is having some epigastric pain radiating to the back. [facility] Medical History Anxiety Bipolar disorder Depression Migraines Home Medications clonazepam 1 mg PO QHS 01/01/14 [History Last Taken 02/14/21] divalproex 250 mg PO QHS 01/01/14 [History Last Taken 02/12/21] duloxetine 30 mg PO DAILY 01/01/14 [History Last Taken 02/13/21] lamotrigine 100 mg PO BID 01/01/14 [History Last Taken 02/13/21] Allergy/AdvReac Type Severity Reaction Status Date / Time No Known Allergies Allergy Verified 02/14/21 00:44 Family History (Updated 02/14/21 @ 05:[address] Isaias oTbias MD) Other Aneurysm Cancer Heart disease Kidney disease Liver problem Surgical History H/O vasectomy S/P LASIK surgery of both eyes Social History (Updated 02/14/21 @ 05:[address] Isaias Tobias MD) Smoking Status: Never smoker alcohol intake: current alcohol intake frequency: holidays/special occasions only details: none today substance use type: does not use ROS Constitutional Constitutional: Denies chills or fever(s) Cardiovascular Cardiovascular: Denies chest pain Respiratory/Chest Respiratory/Chest: Denies cough Gastrointestinal Gastrointestinal: Reports abdominal pain, diarrhea, nausea and vomiting Musculoskeletal Musculoskeletal: Denies abnormal gait Integumentary Integumentary: Denies jaundice Neurologic Neurologic: Denies dizziness Psychiatric Psychiatric: Reports systems reviewed and no addt'l complaints, except as documented Endocrine Endocrinology: Reports systems reviewed and no addt'l complaints, except as documented Physical Exam Const alert and oriented x3 General Appearance: cooperative HEENT normocephalic Eyes PERRL Neck full ROM Lymph Lymphatic: no lymphadenopathy noted Resp normal respiratory effort Cardio Rate: regular rate Rhythm: regular rhythm GI soft to palpation and non-distended Palpation: tender epigastric Lab / Micro Data Result Diagrams: 02/14/21 06:16 02/14/21 06:16 Labs: Laboratory Results - last 24 hr 02/14/21 02/14/21 02/14/21 00:00 00:00 00:00 WBC 11.8 H RBC 4.49 L Hgb 14.4 Hct 42.3 MCV 94.2 H MCH 32.1 H MCHC 34.0 RDW Std Deviation 41.0 RDW Coeff of Kelley 11.9 Plt Count 359 MPV 9.4 Immature Gran % (Auto) 0.500 Neut % (Auto) 90.7 H Lymph % (Auto) 3.6 L Haakon % (Auto) 4.0 Eos % (Auto) 0.9 Baso % (Auto) 0.3 Absolute Neuts (auto) 10.7 H Absolute Lymphs (auto) 0.43 L Nucleated RBC % 0 Differential Comment SCANNED Sodium 139 Potassium 5.1 Chloride 106 Carbon Dioxide 24.0 Anion Gap 9 BUN 25 H Creatinine 1.81 H Estim Creat Clear Calc 41.08 Est GFR (MDRD) Af Amer 50 L Est GFR (MDRD) Non-Af 41 L BUN/Creatinine Ratio 13.8 Glucose 150 H Calcium 9.7 Total Bilirubin 0.70 Direct Bilirubin 0.20 AST 28 ALT 46 Alkaline Phosphatase 101 Troponin I < 0.015 Total Protein 7.9 Albumin 4.3 Globulin 3.6 Albumin/Globulin Ratio Lipase 1568 H Urine Color Urine Clarity Urine pH Ur Specific [place] Urine Protein Urine Glucose (UA) Urine Ketones Urine Occult Blood Urine Nitrite Urine Bilirubin Urine Urobilinogen Ur Leukocyte Esterase Urine RBC Urine WBC Ur Squamous Epith Cells Urine Bacteria Urine Mucus Valproic Acid 02/14/21 02/14/21 02/14/21 01:00 06:16 06:16 WBC 10.6 RBC 4.28 L Hgb 13.3 Hct 40.2 MCV 93.9 MCH 31.1 MCHC 33.1 RDW Std Deviation 42.1 RDW Coeff of Kelley 12.2 Plt Count 298 MPV 8.9 Immature Gran % (Auto) 0.500 Neut % (Auto) 93.4 H Lymph % (Auto) 2.7 L Haakon % (Auto) 3.0 Eos % (Auto) 0.1 Baso % (Auto) 0.3 Absolute Neuts (auto) 9.9 H Absolute Lymphs (auto) 0.29 L Nucleated RBC % 0 Differential Comment SCANNED Sodium 139 Potassium 4.4 Chloride 105 Carbon Dioxide 25.0 Anion Gap 9 BUN 24 H Creatinine 1.47 H Estim Creat Clear Calc 50.59 Est GFR (MDRD) Af Amer 63 Est GFR (MDRD) Non-Af 52 L BUN/Creatinine Ratio 16.3 Glucose 135 H Calcium 8.7 Total Bilirubin 0.50 Direct Bilirubin AST 20 ALT 40 Alkaline Phosphatase 90 Troponin I Total Protein 6.6 Albumin 3.7 Globulin 2.9 Albumin/Globulin Ratio 1.3 Lipase Urine Color Yellow Urine Clarity Clear Urine pH 6.0 Ur Specific [place] 1.020 Urine Protein 30 H Urine Glucose (UA) Normal Urine Ketones 5 H Urine Occult Blood Negative Urine Nitrite Negative Urine Bilirubin 1 H Urine Urobilinogen Normal Ur Leukocyte Esterase 25 H Urine RBC 0 SEEN Urine WBC 0-5 SEEN Ur Squamous Epith Cells 0 SEEN Urine Bacteria 0 SEEN Urine Mucus 0 SEEN Valproic Acid 02/14/21 06:16 WBC RBC Hgb Hct MCV MCH MCHC RDW Std Deviation RDW Coeff of [place] Plt Count MPV Immature Gran % (Auto) Neut % (Auto) Lymph % (Auto) Haakon % (Auto) Eos % (Auto) Baso % (Auto) Absolute Neuts (auto) Absolute Lymphs (auto) Nucleated RBC % Differential Comment Sodium Potassium Chloride Carbon Dioxide Anion Gap BUN Creatinine Estim Creat Clear Calc Est GFR (MDRD) Af Amer Est GFR (MDRD) Non-Af BUN/Creatinine Ratio Glucose Calcium Total Bilirubin Direct Bilirubin AST ALT Alkaline Phosphatase Troponin I Total Protein Albumin Globulin Albumin/Globulin Ratio Lipase Urine Color Urine Clarity Urine pH Ur Specific [place] Urine Protein Urine Glucose (UA) Urine Ketones Urine Occult Blood Urine Nitrite Urine Bilirubin Urine Urobilinogen Ur Leukocyte Esterase Urine RBC Urine WBC Ur Squamous Epith Cells Urine Bacteria Urine Mucus Valproic Acid < 3 L Micro: Microbiology 02/14/21 06:39 SARS-CoV-2 Antigen (Rapid) - Final Interface Orders Radiology Impression Brain CT 02/14/21 00:21 IMPRESSION: Mild atrophy no evidence of acute hemorrhage infarct or edema. Pansinusitis. Electronically Signed: Tammy Arriaga MD at 0:53 EDT Tel , Service support , Chest X-Ray 02/14/21 00:21 IMPRESSION: Degenerative changes, as described above. No demonstrated acute cardiopulmonary process. Electronically Signed: Tammy Arriaga MD at 1:05 EDT Tel , Service support , Abdomen/Pelvis CT 02/14/21 02:26 IMPRESSION: Distended stomach with a decompressed duodenum distended jejunum possible etiology enteritis or focal narrowing of the lumen, and/or potential for possible gastric outlet obstruction with enteritis versus moderate grade partial small bowel obstruction. Recommend aspiration precautions the stomach is very distended with an air-fluid level. Hepatic steatosis. No appendicitis. No hydronephrosis. Electronically Signed: Tammy Arriaga MD at 3:38 EDT Tel , Service support , KUB X-Ray 02/14/21 04:44
--- NOTE | 2021-02-14 10:35 | CASEMGMT ---
RN AYSE Face to Face with patient for initial transition planning/care coordination assessment. RN CM introduced self and role at [facility]. Patient lying in bed, alert and oriented. Patient willing to participate in assessment and is able to answer all questions appropriately. Care providers, pharmacy, and demographics verified. Patient wishes to discharge home, denies need for home health at this time. Patient states he has no further needs or concerns at this time. CM to follow for discharge planning needs that may arise. PCP: No PCP, patient provided list of PCP in area Specialists: jyoti Kendrickist Preferred Pharmacy: [facility] Insurance: [place] Prescription Benefit: yes Living Will/HPOA: none LNOK: son Living Arrangements: Patient lives with son in a duplex with bed and bath on 1st floor. 2 steps and railing to enter. Patient is independent at home. Transportation: self/son DME/HHC: Patient denies DME or previous HHC. Disposition Plan: Patient to discharge home with family support and follow-up plans in place. Abigail MAXWELL, RN, CM
[2021-02-14] MEDS: lamoTRIgine 100 MG Tablet PO (18:22)
[2021-02-14] MEDS: DULoxetine Hcl 30 MG Capsule PO (18:22)
[2021-02-14] MEDS: Divalproex (ER) 250 MG Tablet PO (21:39)
[2021-02-15] MEDS: Lactated Ringers 1,000 ML 150 ML IV (04:47)
[2021-02-15 04:48] VITALS: BP 154/102; PULSE 67; RESP 18; TEMP 37.1; O2SAT 95
[2021-02-15 06:48] LABS: Absolute Neutrophil Count 3.8 X10^3/uL (2.0-7.7); Basophil# 0.02 X10^3/uL; Basophil% 0.4 % (0-1); Eosinophil# 0.22 X10^3/uL; Eosinophils% 3.9 % (0-5); Hematocrit 36.7 % (40-54); Hemoglobin 12.2 g/dL (13.0-16.5); Lymphocyte % 19.5 % (19-41); Mean Corp Hgb Conc 33.2 g/dL (32-36); Mean Corpuscular Hgb 31.7 pg (27.0-32.0); Mean Corpuscular Volume 95.3 fL (80-94); Monocyte# 0.49 X10^3/uL; Monocyte% 8.7 % (0-10); NRBC Flagged by Analyzer 0 % (0-5); Neutrophil # 3.78 X10^3/uL (2.7-7.7); Neutrophil % 67.1 % (47-70); Platelet Count 267 K/mm3 (150-450); RBC Distribution Width SD 41.6 fl (35.1-43.9); Red Blood Count 3.85 M/mm3 (4.6-6.2); White Blood Count 5.6 K/mm3 (4.4-11.0)
[2021-02-15 07:15] LABS: AST(SGOT) 22 U/L (15-37); Alanine Aminotransfer ALT/SGPT 37 U/L (16-61); Albumin, Serum 3.1 g/dL (3.2-5.0); Alkaline Phosphatase 76 U/L (45-117); Anion Gap 4 (5-15); BUN 14 mg/dL (7-18); BUN/Creat Ratio 12.1 RATIO (10-20); Calcium,Total 8.4 mg/dL (8.5-10.1); Chloride 107 mmol/L (98-107); Creatinine, Serum 1.16 mg/dL (0.70-1.30); EST Glomerular Filtration Rate 68 mL/min (>60); Est Glom Filt Rate - Afr Amer 83 mL/min (>60); Estimated Creatinine Clearance 64.11 ml/min; Globulin 3.2 g/dL (2.2-4.2); Glucose 100 mg/dL (74-106); Lipase 175 U/L (73-393); Potassium 3.7 mmol/L (3.5-5.1); Protein, Total 6.3 g/dL (6.4-8.2); Sodium Level 138 mmol/L (136-145)
--- NOTE | 2021-02-15 07:40 | PCM.PN.SRG ---
Subjective Subjective: Patient reports he is having diarrhea every 2 hours. He says he is not having any nausea or vomiting with clear liquids. His abdominal pain is improved. Objective Data Objective Data Vital Signs: Vital Signs Temp Pulse Resp BP Pulse Ox 98.8 F 67 18 154/102 H 95 02/15/21 04:48 02/15/21 04:48 02/15/21 04:48 02/15/21 04:48 02/15/21 04:48 Oxygen Delivery Method Room Air Weight: 206 lb 12.697 oz Body Mass Index (BMI) 31.8 Intake & Output: Intake and Output for Last 24 Hours 02/13/21 02/14/21 02/15/21 23:59 23:59 23:59 Intake Total 2600 / 2600 1000 / 1000 Output Total 50 / 50 Balance 2550 / 2550 1000 / 1000 Lab / Micro Data Result Diagrams: 02/15/21 06:15 02/15/21 06:15 Labs: Laboratory Results - last 24 hr 02/15/21 02/15/21 06:15 06:15 WBC 5.6 RBC 3.85 L Hgb 12.2 L Hct 36.7 L MCV 95.3 H MCH 31.7 MCHC 33.2 RDW Std Deviation 41.6 RDW Coeff of Kelley 12.0 Plt Count 267 MPV 9.0 Immature Gran % (Auto) 0.400 Neut % (Auto) 67.1 Lymph % (Auto) 19.5 [place] % (Auto) 8.7 Eos % (Auto) 3.9 Baso % (Auto) 0.4 Absolute Neuts (auto) 3.8 Absolute Lymphs (auto) 1.10 Nucleated RBC % 0 Sodium 138 Potassium 3.7 Chloride 107 Carbon Dioxide 27.0 Anion Gap 4 L BUN 14 Creatinine 1.16 Estim Creat Clear Calc 64.11 Est GFR (MDRD) Af Amer 83 Est GFR (MDRD) Non-Af 68 BUN/Creatinine Ratio 12.1 Glucose 100 Calcium 8.4 L Total Bilirubin 0.50 AST 22 ALT 37 Alkaline Phosphatase 76 Total Protein 6.3 L Albumin 3.1 L Globulin 3.2 Albumin/Globulin Ratio 1.0 Lipase 175 Micro: Microbiology 02/14/21 10:35 Stool Enteric Bacteriology - Final Norovirus 02/14/21 10:35 Stool C. difficile DNA Amplification - Final 02/14/21 06:39 Interface Orders SARS-CoV-2 Antigen (Rapid) - Final Radiography Diagnostic Testing: Radiology Impression Gallbladder Ultrasound 02/14/21 05:55 IMPRESSION: 1. Gallbladder sludge. 2. Fatty infiltration liver. Electronically Signed: Ketan Bustos MD at 8:46 EDT Tel , Service support , Physical Exam Narrative Abdomen is soft and nontender. Mildly distended. Assessment & Plan Assessment/Plan (1) Enteritis due to Norovirus: Status: Acute Code(s): A08.11 - Acute gastroenteropathy due to [place] agent (2) Gastroenteritis: Status: Acute Code(s): K52.9 - Noninfective gastroenteritis and colitis, unspecified Plan: The patient has norovirus gastroenteritis. I have advanced his diet to clear liquids yesterday and removed his NG which he tolerated. I will advance her to regular diet today. His lipase has returned to normal. Follow-up as needed. Okay to DC from my standpoint. Fan Crawford MD Pager: [facility] [address] [place] [address], [address] [place] [address] Office:
[2021-02-15 08:18] VITALS: O2SAT 96
[2021-02-15 09:40] VITALS: BP 150/97; PULSE 66; RESP 16; TEMP 36.9; O2SAT 100
[2021-02-15] MEDS: DULoxetine Hcl 30 MG Capsule PO (09:52)
[2021-02-15] MEDS: lamoTRIgine 100 MG Tablet PO (09:52)
--- NOTE | 2021-02-15 10:43 | DS.PCM_ITS ---
Providers Date of Admission: 02/14/21 Primary Care Physician: Mandy Primary Care Phys Consultations 02/14/21 05:35 Consult: General Surgery Routine Consulting Provider: Fan Crawford Reason for Consult: Gastric outlet obstruction EMERGENT Consult: No MD Notified: Yes Date Notified:: 02/14/21 Time Notified: 06:30 Method of Notification: Verbal Reason For Visit: GASTRIC OUTLET OBSTRUCTION Diagnosis Discharge Diagnosis (1) Gastroenteritis due to norovirus: Status: Acute Code(s): A08.11 - Acute gastroenteropathy due to [place] agent (2) KEITH (acute kidney injury): Status: Resolved Code(s): N17.9 - Acute kidney failure, unspecified Medications at Discharge Home Medications clonazepam 1 mg PO QHS 01/01/14 divalproex 250 mg PO QHS 01/01/14 duloxetine 30 mg PO DAILY 01/01/14 lamotrigine 100 mg PO BID 01/01/14 Hospital Course Operations None Procedures None Summary of Care Provided Minutes Spent on Discharge: 35 Hospital Course: HPI Cata DENTON, is a 60 M with a significant history of bipolar disorder who presents to the emergency department with multiple episodes of nausea and vomiting that started few hours before presentation. Patient was at work doing some light duty nonexertional with. Reportedly he was not overheated and he was well hydrated. Associated if his symptoms is lightheadedness and chest pain radiating to his right shoulder blade and down below . He has had to episodes of loose bowel movements 1 at the workplace and 1 at the emergency department. He reported at his girlfriend; and girlfriend's family has nausea vomiting and diarrhea. Hospital Course: 1. Gastroenteritis secondary to norovirus/[id number]-epqp-old male presented from home secondary to gastroenteritis and KEITH. His niece got sick about a week ago and as noted his and then he was at work and had some severe nausea followed by multiple episodes of emesis. He did have an NG tube placed because initially there was a concern for gastric outlet obstruction and had 1000 cc drained almost immediately upon insertion of the NG tube. Overnight he started having multiple bowel movements and was feeling much better so he was advance from his clear liquid diet to a regular diet this morning. He is tolerating his breakfast very well and he is remaining very hydrated with his IV fluids. As long as he continues to tolerate his general diet, I discussed with him the plan for discharge today and he expressed understanding risk benefits of going home and wants to go home today if he can. 2. Bipolar disorder is a chronic medical condition with complicates his care. His home medications were continued were appropriate Physical Exam Const alert, oriented x3 and no apparent distress General Appearance: cooperative HEENT normocephalic and moist oral mucous membranes Eyes PERRL, EOMs intact bilaterally and conjunctivae normal Neck no lymphadenopathy, supple and no JVD Resp normal respiratory effort and clear to auscultation bilaterally Auscultation: Negative for crackles, rales, rhonchi or wheezes Cardio regular rate, regular rhythm, S1 normal heart sound, S2 normal heart sound and no murmurs GI soft to palpation, non-tender and non-distended; Negative for hepatosplenomegaly Extremity no clubbing, cyanosis or edema Skin no rashes or lesions noted Neuro no focal motor deficits and no sensory deficits noted Psych affect normal ABG / Lab / Microbiology Data Result Diagrams: 02/15/21 06:15 02/15/21 06:15 Laboratory: Laboratory Results - last 24 hr 02/15/21 02/15/21 06:15 06:15 WBC 5.6 RBC 3.85 L Hgb 12.2 L Hct 36.7 L MCV 95.3 H MCH 31.7 MCHC 33.2 RDW Std Deviation 41.6 RDW Coeff of Kelley 12.0 Plt Count 267 MPV 9.0 Immature Gran % (Auto) 0.400 Neut % (Auto) 67.1 Lymph % (Auto) 19.5 [place] % (Auto) 8.7 Eos % (Auto) 3.9 Baso % (Auto) 0.4 Absolute Neuts (auto) 3.8 Absolute Lymphs (auto) 1.10 Nucleated RBC % 0 Sodium 138 Potassium 3.7 Chloride 107 Carbon Dioxide 27.0 Anion Gap 4 L BUN 14 Creatinine 1.16 Estim Creat Clear Calc 64.11 Est GFR (MDRD) Af Amer 83 Est GFR (MDRD) Non-Af 68 BUN/Creatinine Ratio 12.1 Glucose 100 Calcium 8.4 L Total Bilirubin 0.50 AST 22 ALT 37 Alkaline Phosphatase 76 Total Protein 6.3 L Albumin 3.1 L Globulin 3.2 Albumin/Globulin Ratio 1.0 Lipase 175 Microbiology: Microbiology 02/14/21 10:35 Enteric Bacteriology - Final Stool Norovirus C. difficile DNA Amplification - Final 02/14/21 06:39 SARS-CoV-2 Antigen (Rapid) - Final Interface Orders Microbiology 02/14/21 10:35 Stool Enteric Bacteriology - Final Norovirus 02/14/21 10:35 Stool C. difficile DNA Amplification - Final 02/14/21 06:39 Interface Orders SARS-CoV-2 Antigen (Rapid) - Final Meaningful Use Info Meaningful Use Diagnoses (Choose all that apply): None applicable Discharge Plan Admission Admit Date/Time: 02/14/21 04:59 Attending Provider: Quintin Major Primary Care Provider: Care Physician,No Primary Consulting Providers: Fan Crawford Instructions Patient Instructions: Acute Kidney Failure, ED Gastroenteritis, Viral (Adult) Discharge Orders/Prescriptions Prescriptions: Continued clonazepam 1 MG tablet 1 mg PO QHS RF: 0 lamotrigine 100 MG tablet 100 mg PO BID RF: 0 divalproex 250 MG tablet 250 mg PO QHS RF: 0 duloxetine 30 MG capsule 30 mg PO DAILY RF: 0 Referrals: Care Physician,No Primary [Primary Care Provider] - Disposition Patient Disposition: Home, self care Visit Charges Inpatient E&M: 08940 Disch Hosp
--- NOTE | 2021-02-15 10:46 | PCM.DC ---
Discharge Instructions Outpatient Procedure Reason For Visit: GASTRIC OUTLET OBSTRUCTION Diet Discharge Diet: No restrictions Activity Discharge Activity: Return to Normal Activity Dressing / Incision Call your doctor if you observe: Fever of 101 or Higher, Shortness of breath, Dizziness, Fainting spells, Swelling in the ankles, Chest pain and Increased palpitations (irregular heartbeat) Follow Up Care Test Results: Test results from this visit will be discussed in further detail at your follow-up appointment, if applicable. Discharge Plan Admission Admit Date/Time: 02/14/21 04:59 Attending Provider: Quintin Major Primary Care Provider: Care Physician,No Primary Consulting Providers: Fan Crawford Instructions Patient Instructions: Acute Kidney Failure, ED Gastroenteritis, Viral (Adult) Discharge Orders/Prescriptions Prescriptions: Continued clonazepam 1 MG tablet 1 mg PO QHS RF: 0 lamotrigine 100 MG tablet 100 mg PO BID RF: 0 divalproex 250 MG tablet 250 mg PO QHS RF: 0 duloxetine 30 MG capsule 30 mg PO DAILY RF: 0 Referrals: Care Physician,No Primary [Primary Care Provider] - Disposition Patient Disposition: Home, self care
--- NOTE | 2021-02-15 11:27 | PHA.DC.MR ---
Pharmacy Service has performed discharge medication reconciliation for this patient. No new medications at time of discharge review, medications reviewed are from previously reported home medications. Home Medications clonazepam 1 mg PO QHS 01/01/14 divalproex 250 mg PO QHS 01/01/14 duloxetine 30 mg PO DAILY 01/01/14 lamotrigine 100 mg PO BID 01/01/14 The patient's discharge medication list was reviewed for discrepancies and discrepancies were resolved.
== END 2021-02-15 12:58 | disposition home or self-care (01) | DRG 392 ==
LOC: ED 02-14 04:37 → MS3 02-14 05:03
PROVIDERS: Surgery; Admitting Provider Hospitalist; Emergency Provider Emergency Medicine; Visit Provider Family Medicine
DX: A08.11 Acute gastroenteropathy due to Norwalk agent (principal); N17.9 Acute kidney failure, unspecified; K56.600 Partial intestinal obstruction, unspecified as to cause; F31.9 Bipolar disorder, unspecified; F41.9 Anxiety disorder, unspecified; G43.909 Migraine, unspecified, not intractable, without status migrainosus; Z79.899 Other long term (current) drug therapy
CPT/HCPCS: 36415; 70450; 71045; 74018; 74177; 76705; 80048; 80053; 80076; 80164; 81001; 83690; 84484; 85025; 87177; 87209; 87426; 87493; 87506; 93005; 94640; 99285; J7120; Q9967; A4216

== ENCOUNTER 2021-05-15 23:15 | Emergency (ER) | payer OTHER, SELFPAY ==
[2021-02-14 05:41] VITALS: BMI 31.8
[2021-05-15 23:16] VITALS: BP 145/100; PULSE 96; RESP 16; TEMP 36.6; O2SAT 99; BMI 31.9
[2021-05-15] MEDS: Lidocaine 1% (20 ml mdv) 20 ML Vial INFILT (23:47)
--- NOTE | 2021-05-15 23:48 | EX.ED.GENINJ ---
HPI History of Present Illness Chief Complaint: Laceration Informant: patient Narrative Narrative: 60-year-old male was at work tonight when he sustained a right ring finger laceration. He was wearing Kevlar gloves and the metal sliced through the gloves and into his finger. He states that for the past hour and a half is not stop bleeding. They have tried some skin glue compression and is not working. He does not take any blood thinners Tetanus Immunization: Unknown PFSH PFS Medical History Anxiety Bipolar disorder Depression Migraines Home Medications clonazepam 1 mg PO QHS 01/01/14 [History Last Taken 02/14/21] divalproex 250 mg PO QHS 01/01/14 [History Last Taken 02/12/21] duloxetine 30 mg PO DAILY 01/01/14 [History Last Taken 02/13/21] lamotrigine 100 mg PO BID 01/01/14 [History Last Taken 02/13/21] Allergy/AdvReac Type Severity Reaction Status Date / Time No Known Allergies Allergy Verified 05/15/21 23:16 Family History (Updated 02/14/21 @ 05:[address] Isaias Tobias MD) Other Aneurysm Cancer Heart disease Kidney disease Liver problem Surgical History H/O vasectomy S/P LASIK surgery of both eyes Social History Smoking Status: Never smoker alcohol intake: current alcohol intake frequency: holidays/special occasions only details: none today substance use type: does not use ROS ROS ED Constitutional Constitutional ED: Denies chills or weight loss Eyes Eyes: Denies change in vision or diplopia ENT ENT ED: Denies ear pain, rhinorrhea or sore throat Cardiovascular Cardiovascular: Denies chest pain, orthopnea, palpitations or racing heartbeat Respiratory/Chest Respiratory/Chest: Denies cough, dyspnea or orthopnea Gastrointestinal Gastrointestinal: Denies abdominal pain, diarrhea, nausea or vomiting Genitourinary Genitourinary ED: Denies dysuria, hematuria or urinary frequency Musculoskeletal Musculoskeletal: Denies arthralgias or myalgias Integumentary Reports other Details: History of present illness ; Denies abscess or rash Neurologic Neurologic: Denies headache(s) or weakness Psychiatric Psychiatric: Denies anxiety, depression, suicidal ideation or suicidal thoughts Endocrine Endocrinology: Denies polydipsia, polyphagia or polyuria Allergic/Immunologic Allergic/Immunologic ED: Denies mouth swelling, tongue swelling or urticaria EXAM Physical Exam Const Vital Signs: 05/15/21 23:16 Temperature 97.8 F Temperature Source Temporal Pulse Rate 96 Respiratory Rate 16 Blood Pressure 145/100 H Blood Pressure Mean 115 Pulse Ox 99 Oxygen Delivery Method Room Air Positive well nourished and well developed General Appearance ED: well developed HEENT Reports normocephalic, head/scalp atraumatic and moist mucous membranes atraumatic; Negative for trauma or tenderness Eyes PERRL and EOMs intact bilaterally Neck no lymphadenopathy, supple and no JVD Resp normal respiratory effort and clear to auscultation bilaterally Cardio regular rate, regular rhythm and no murmurs GI normal to inspection, nondistended, normoactive bowel sounds and non-tender Palpation: soft Back/Spine no CVA tenderness and normal ROM Extremity General Extremety ED: Negative for edema or tenderness General Extremity: Negative for edema Neuro oriented x3 and CN's II-XII intact bilaterally Sensorium / Orientation: alert Motor Exam: strength 5/5 throughout Psych mental status grossly normal Mood & Affect: Negative for depressed or tearful Skin no rashes or lesions noted Skin Narrative: There is a 0.5 cm volar right ring finger skin avulsion over the distal tip. It is actively having venous bleeding. It is rather thin about 1 mm to 2 mm wide MDM MDM MDM Narrative Medical decision making narrative: Wound was locally anesthetized using 1% lidocaine with epinephrine. After being able to explored in a bloodless field I had enough give with this tissue that I could easily pull it together. Therefore 2 simple interrupted 4-0 Ethilon sutures were used to close the skin allowing good homeostasis. Wound was dressed with Gelfoam and dressing. Wound care discussed with patient. Stitches to be removed in 10 days his tetanus will be updated with Adacel. Discharge Plan Triage Chief Complaint: Laceration ED Provider: Saúl Fu Dx/Rx/DC Orders Clinical Impression: Laceration of right ring finger Instructions: ED Laceration, Hand: All Closures Prescriptions: No Action clonazepam 1 MG tablet 1 mg PO QHS RF: 0 lamotrigine 100 MG tablet 100 mg PO BID RF: 0 divalproex 250 MG tablet 250 mg PO QHS RF: 0 duloxetine 30 MG capsule 30 mg PO DAILY RF: 0 Primary Care Provider: Care Physician,No Primary Referrals: Care Physician,No Primary [Primary Care Provider] - Clinic,NOW [NON-STAFF] - 10 Day for suture removal Disposition Disposition: Home, Self Care
[2021-05-15] MEDS: Diphth,Pertuss(Acell),Tet Vac 0.5 ML Vial IM (23:52)
== END 2021-05-16 00:04 | disposition home or self-care (01) ==
PROVIDERS: Emergency Provider Emergency Medicine
DX: S61.214A Laceration without foreign body of right ring finger without damage to nail, initial encounter (principal); G43.909 Migraine, unspecified, not intractable, without status migrainosus; X58.XXXA Exposure to other specified factors, initial encounter
CPT/HCPCS: 12001; 90471; 90715; 99284

== ENCOUNTER 2021-07-02 23:14 | Emergency (ER) | payer OTHER, BC, SELFPAY ==
--- NOTE | 2021-07-02 00:28 | RAD_ITS ---
STUDY: X-RAY - LEFT SHOULDER REASON FOR EXAM: Male, 60 years old. INJURY TECHNIQUE: 4 view(s) of the shoulder. COMPARISON: None. FINDINGS: Normal glenohumeral articulation. There is degenerative arthrosis of the acromioclavicular joint without inferior osseous spur formation. Normal acromion. Normal humeral head and visualized proximal humerus. The soft tissue structures are unremarkable. Normal visualized pulmonary apex. RAD/Shoulder min 2 Views IMPRESSION: There is degenerative arthrosis of the acromioclavicular joint Electronically Signed: Sydnee Antoine MD at 0:54 EDT Tel , Service support ,
[2021-07-02 23:15] VITALS: BP 157/96; PULSE 96; RESP 18; TEMP 37.7; O2SAT 95; BMI 31.3
--- NOTE | 2021-07-03 02:43 | EX.ED.UPPERE ---
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 Then a machine did not operate correctly, and as a result, he went to the side hitting his left shoulder anteriorly on a nearby metal railing of a nearby staircase. The second injury was more severe, they occurred within an hour or less of each other. Now he is having trouble raising his arm because it hurts so bad. Left hand dominant. In addition to this, for the last 2 days he has had fevers, chills, cough, mild shortness of breath tonight, myalgias, and he has a son that has Covid. Patient has not had a shot. [facility] Medical History Anxiety Bipolar disorder Depression Migraines Home Medications clonazepam 1 mg PO QHS 01/01/14 [History Last Taken 02/14/21] divalproex 250 mg PO QHS 01/01/14 [History Last Taken 02/12/21] duloxetine 30 mg PO DAILY 01/01/14 [History Last Taken 02/13/21] lamotrigine 100 mg PO BID 01/01/14 [History Last Taken 02/13/21] Allergy/AdvReac Type Severity Reaction Status Date / Time No Known Allergies Allergy Verified 07/02/21 23:15 Family History (Updated 02/14/21 @ 05:[address] Isaias Tobias MD) Other Aneurysm Cancer Heart disease Kidney disease Liver problem Surgical History H/O vasectomy S/P LASIK surgery of both eyes Social History Smoking Status: Never smoker alcohol intake: current alcohol intake frequency: holidays/special occasions only details: none today substance use type: does not use ROS ROS ED Constitutional Constitutional ED: Reports body ache(s), chills, fatigue, fever(s), headache(s) and malaise Eyes Eyes: Denies change in vision or diplopia ENT ENT ED: Denies rhinorrhea or sore throat Cardiovascular Cardiovascular: Denies chest pain or palpitations Respiratory/Chest Respiratory/Chest: Reports cough and dyspnea Gastrointestinal Gastrointestinal: Reports diarrhea; Denies abdominal pain, nausea or vomiting Genitourinary Genitourinary ED: Denies dysuria or hematuria Musculoskeletal Musculoskeletal: Reports extremity pain; Denies back pain or neck pain Integumentary Denies abscess or rash Neurologic Neurologic: Reports headache(s); Denies paresthesias or weakness Psychiatric Psychiatric: Denies anxiety or suicidal thoughts EXAM Physical Exam Const Vital Signs: 07/02/21 23:15 Temperature 99.8 F H Temperature Source Temporal Pulse Rate 96 Respiratory Rate 18 Blood Pressure 157/96 H Blood Pressure Mean 116 Pulse Ox 95 Oxygen Delivery Method Room Air Positive well nourished and well developed Constitutional Narrative: well-appearing, no distress General Appearance ED: well developed and NAD HEENT Reports moist mucous membranes normocephalic and atraumatic Eyes PERRL and EOMs intact bilaterally Neck full ROM and supple Resp normal respiratory effort and clear to auscultation bilaterally Cardio regular rate, regular rhythm and no murmurs Rate: Negative for tachycardic GI non-tender and non-distended Auscultation: normoactive bowel sounds Palpation: soft Back/Spine no CVA tenderness General Back: other FROM Extremity normal to inspection and no calf tenderness Extremity Narrative: Left shoulder tender at the coracoid process and in the bicipital groove anteriorly. Very mildly tender subacromial. No clavicle or acromioclavicular tenderness. No deformity. Very limited range of motion due to pain anteriorly with positive Yergason. General Extremety ED: Negative for edema, pulses abnormal or tenderness General Extremity: Negative for edema or pulses abnormal Neuro oriented x3, CN's II-XII intact bilaterally and no sensory deficits noted Sensorium / Orientation: awake and alert Motor Exam: strength 5/5 throughout Skin no rashes or lesions noted and no wounds MDM MDM MDM Narrative Medical decision making narrative: Patient has a reassuringly normal x-ray except for some chronic changes. Unfortunately his Covid test returned positive and I think it is a true positive given his symptoms and exposures. He was given restrictions for work, however he will need to be off work for at least the next 8 days, and certainly it is possible that his shoulder is better by then, he will need to follow-up with [facility] but will probably not be able to do that until at least 8 days from now as well. He is not a candidate for monoclonal antibody infusion given his health, weight, age. His oxygenation is excellent. He was given something for his pain, and instructions with regards to Covid. Lab Data Attestation: I reviewed the patient's lab results. Radiography Diagnostic Testing: Radiology Impression Shoulder X-Ray 07/02/21 00:28 IMPRESSION: There is degenerative arthrosis of the acromioclavicular joint Electronically Signed: Sydnee Antoine MD at 0:54 EDT Tel , Service support , Discharge Plan Triage Chief Complaint: Upper Extremity Injury Other Complaint: Shortness of Breath ED Provider: Ricardo Yu Dx/Rx/DC Orders Clinical Impression: Contusion of left shoulder, COVID-19 Instructions: Coronavirus Disease 2019 (COVID-19): Caring for Yourself or Others Prescriptions: No Action clonazepam 1 MG tablet 1 mg PO QHS RF: 0 lamotrigine 100 MG tablet 100 mg PO BID RF: 0 divalproex 250 MG tablet 250 mg PO QHS RF: 0 duloxetine 30 MG capsule 30 mg PO DAILY RF: 0 Stand Alone Forms: ED Work / School Excuse Primary Care Provider: Care Physician,No Primary Referrals: Corporate,Care [GROUP OF PHYSICIANS] - 10-14 Days if not better Care Physician,No Primary [Primary Care Provider] - Disposition Disposition: Home, Self Care
[2021-07-03] MEDS: Naproxen 250 MG Tablet 500 MG PO (02:50)
[2021-07-03 04:29] VITALS: RESP 18
== END 2021-07-03 04:30 | disposition home or self-care (01) ==
PROVIDERS: Emergency Provider Emergency Medicine
DX: S40.012A Contusion of left shoulder, initial encounter (principal); U07.1 COVID-19; F31.9 Bipolar disorder, unspecified; G43.909 Migraine, unspecified, not intractable, without status migrainosus; X58.XXXA Exposure to other specified factors, initial encounter; Z79.899 Other long term (current) drug therapy
CPT/HCPCS: 73030; 87426; 99283